=== PATIENT | female | born 1955 | race Caucasian/White ===

== ENCOUNTER 2016-10-17 13:16 | Observation (INO) ==
[2016-10-17] MEDS: SALINE FLUSH 10ml SYRINGE IVF PRN ×2 (13:34→16:05)
--- OUTSIDE RECORDS SUMMARY | 2016-10-17 13:54 | External Medical Summary | Referral Summary ---
:1955 Author Organization [facility] [place] [id number] Care Team Providers Name Role Phone Kasia Naqvi Primary Care Physician Encounter VC Date(s): 04/30/15 - 04/30/15 [facility] [place] [phone] [phone] Discharge Disposition: 01-Home or Self Care Attending Physician: Jerzy Wade APRN Admitting Physician: Jerzy Wade APRN Vital Signs Most recent to oldest [Reference Range]: 1 Temperature Tympanic [36.6-38.1 degC] 36.3 degC *LOW* (04/30/15 10:46 AM) Peripheral Pulse Rate [60-100 bpm] 73 bpm (04/30/15 10:46 AM) Respiratory Rate [14-20 br/min] 18 br/min (04/30/15 10:46 AM) Blood Pressure [90-140/60-90 mmHg] 144/92 mmHg *HI* (04/30/15 10:46 AM) SpO2 98 % (04/30/15 10:46 AM) Problem List Condition Effective Dates Status Health Status Informant CAD (coronary artery Active disease)(Confirmed) Crohn's disease(Confirmed) Active GERD (gastroesophageal reflux Active disease)(Confirmed) History of TIA (transient ischemic Active attack)(Confirmed) Seasonal allergies(Confirmed) Active Allergies, Adverse Reactions, Alerts Substance Reaction Severity Status acetaminophen-HYDROcodone Anaphylaxis Medium Active hyoscyamine Adverse Reaction Medium Active novobiocin Adverse Reaction Medium Active oxyCODONE Adverse Reaction Medium Active penicillin Active prednisoLONE Adverse Reaction Medium Active Medications Asacol HD 800 mg oral delayed release tablet mg tabs, Oral, TID, 0 Refill(s) Start Date: 01/21/15 Status: Orderedaspirin 81 mg oral tablet 81 mg 1 tabs, Oral, Daily, # 30 tabs, 0 Refill(s) Start Date: 01/21/15 Status: OrderedRABEprazole 20 mg oral delayed release tablet 20 mg 1 tabs, Oral, Daily, 0 Refill(s) Start Date: 01/21/15 Status: Ordered Results No data available for this section Immunizations No data available for this section Procedures Procedure Date Related Diagnosis Body Site heart cath 12/10/14 artificial knee, right 02/21/11 colonoscopy 02/21/09 Appendectomy; 02/21/95 hysterectomy for endometriosis 10/23/91 tonsilectomy 1960 Social History Social History Type Response Smoking Status Former smoker Assessment and Plan No data available for this section
[2016-10-17] MEDS ORDERED: IOHEXOL 350mg/ml 50ml INJECTION ONE (14:17)
[2016-10-17] MEDS ORDERED: SALINE FLUSH 10ml SYRINGE ONE ×2 (14:17→14:44)
[2016-10-17] MEDS ORDERED: IOHEXOL 350mg/ml 75ml INJECTION ONE (14:17)
[2016-10-17] MEDS ORDERED: NS 100 ML ONE (14:17)
[2016-10-17] MEDS ORDERED: NS 1,000 ML IV ONE (14:29)
--- NOTE | 2016-10-17 14:46 | CT Scan Report ---
Indication: Pain with right-sided weakness and lightheadedness PROCEDURE: CT head/brain wo con: Encounter: Initial Comparison: None Technique: Axial CT images through the head were performed without contrast. Iterative Reconstruction dose reducing technique was utilized. FINDINGS: The ventricles are of normal size, shape, and contour for the patient's age. The brainstem, cerebellum, and cerebral hemispheres have a normal morphology and CT attenuation. There is no evidence of midline displacement. No hemorrhage, signs of acute territorial stroke, mass effect, mass lesions, or edema is evident. The visualized portions of the skull base, midface, and calvarium demonstrate no abnormality. The paranasal sinuses are well aerated and free of significant disease. The tympanic and mastoid cavities appear normal. IMPRESSION: No acute intracranial abnormality or hemorrhage. There is a preliminary report by [facility]. .
--- NOTE | 2016-10-17 14:55 | XRay Report ---
Indication: Chest pain with left arm pain radiating to the back for one day PROCEDURE: XR chest 1V: Encounter: Initial Comparison: September 15, 2016 FINDINGS: The lungs are clear. There is no abnormal airspace opacity, pleural effusion or pneumothorax identified. The heart size, pulmonary vasculature and mediastinum are within normal limits. No significant skeletal abnormality is seen. IMPRESSION: No acute cardiopulmonary abnormality. .
[2016-10-17] MEDS ORDERED: HYDROMORPHONE 2 MG/ML INJECTION IVP ONE (15:54)
[2016-10-17] MEDS ORDERED: ASPIRIN 81 MG CHEWABLE TABLET PO ONE (15:54)
--- NOTE | 2016-10-17 16:08 | Emergency Department Report ---
General Adult HPI - General Chief complaint: Chest Pain Stated complaint: Pos stroke Time Seen by Provider: 10/17/16 13:32 Source: patient Mode of arrival: ambulatory Limitations: no limitations - History of Present Illness HPI narrative: 61-year-old female presents to the emergency department with the chief complaints of chest pain radiating into her back and weakness in her right upper and lower extremities. Patient states that she was at home one day ago at approximately 10 AM when her symptoms began. Patient states that her symptoms have been gradually progressive in nature since onset. Patient states that she did take sublingual nitroglycerin prior to arrival to the emergency department and that gave her a headache but did alleviate her chest pain. Patient denies any other complaints or associated symptoms. She was at home when her symptoms began. Symptoms have been persistent in nature since onset. She states that she does have a history of myocardial infarction in the past as well as TIA. Patient describes the pain in her chest as moderate. It is a sharp. It radiates to her back. - Related Data Home Medications Medication Instructions Recorded Confirmed Nitroglycerin [Nitrostat] 0.4 mg PO Q5MIN PRN #0 12/26/14 10/17/16 Albuterol Sulfate [Proair Hfa] 1 puff INH Q4H PRN 10/17/16 10/17/16 Aspirin 81 mg PO DAILY PRN 10/17/16 10/17/16 Atorvastatin [Lipitor] 10 mg PO HS 10/17/16 10/17/16 Benzonatate [Benzonatate] 100 mg PO Q8H PRN 10/17/16 10/17/16 Budesonide [Uceris] 9 mg PO DAILY 10/17/16 10/17/16 Ibuprofen 200 mg PO Q4H PRN 10/17/16 10/17/16 Mesalamine [Mesalamine] 800 mg PO TID 10/17/16 10/17/16 Omeprazole [Prilosec] 20 mg PO DAILY 10/17/16 10/17/16 Allergies Allergy/AdvReac Type Severity Reaction Status Date / Time diazepam Allergy Severe HIVES Verified 10/17/16 13:28 guaifenesin Allergy Severe HIVES Verified 10/17/16 13:28 hydrocodone Allergy Severe Hives Verified 10/17/16 13:43 nortriptyline Allergy Severe HIVES Verified 10/17/16 13:28 oxycodone Allergy Severe HIVES Verified 10/17/16 13:28 Penicillins Allergy Severe HIVES Verified 10/17/16 13:28 prednisone Allergy Severe "GO Verified 10/17/16 13:28 CRAZY", HIVES topiramate [From Topamax] Allergy Severe Hives Verified 10/17/16 13:28 tramadol Allergy Severe Hives Verified 10/17/16 13:43 Review of Systems Constitutional: Denies: fever, chills Eyes: Denies: eye pain, vision change ENT: Denies: ear pain, throat pain Cardiovascular: Reports: chest pain. Denies: palpitations Respiratory: Denies: cough, dyspnea Gastrointestinal: Denies: abdominal pain, nausea, vomiting, diarrhea Genitourinary: Denies: urgency, dysuria Musculoskeletal: Denies: back pain, arthralgia Integumentary: Denies: erythema, rash Neurological: Reports: headache, weakness. Denies: numbness, paresthesias Psychiatric: Denies: anxiety, depression Endocrine: Denies: fatigue, heat or cold intolerance Hematological/Lymphatic: Denies: easy bleeding, easy bruising Allergic/Immunologic: Denies: facial swelling, urticaria PFSH Patient Stated Medical History Transient Ischemic Attacks ( Yes TIA) Angina Yes Coronary Artery Disease Yes Hypertension Yes Myocardial Infarction Yes: two Bronchitis Yes Pneumonia Yes: 12 years ago Gastroesophageal Reflux Yes Disease Gastrointestinal Bleeding Yes: in the past Hiatal Hernia Yes Other GI Yes: chrons Osteoarthritis Yes Post Menopausal Yes Clinic Medical History (Last Reviewed 10/11/16 @ 08:39 by BRANT Boo) Angina at rest (Acute Medical) Bronchitis (Acute Medical) Coronary artery disease (Acute Medical) GERD (gastroesophageal reflux disease) (Acute Medical) No abnormality detected by assessment of physical health (Acute Medical) Osteoarthritis (Acute Medical) Surgical History: Hyst 1991, right knee total /replacement 2011, right shoulder 2003, colonoscopy Family History: Family History (Last Reviewed 10/11/16 @ 08:39 by BRANT Boo) Paternal Grandfather Cancer, colon Maternal Aunt Skin cancer (melanoma) COPD (chronic obstructive pulmonary disease) Father Heart attack High blood pressure Mother High blood pressure COPD (chronic obstructive pulmonary disease) Brother High blood pressure Sister High blood pressure - Social History Smoking status: Former smoker Substance use type: does not use Alcohol intake frequency: does not drink Physical Exam - Limitations Limitations: no limitations - General General appearance: alert, in no apparent distress - Normal Exams: Head:: Normocephalic without trauma Eyes:: Pupils are PERRLA w/ EOMI, No scleral icterus, irritation, or foreign bodies noted ENMT:: No facial trauma, nasal exudates, pharyngeal erythema, or exudates are noted Dental: No fractured, loose, or missing teeth noted Neck:: Full range of motion, without adenopathy, JVD, bruits or thyromegaly Chest/Respirations:: Clear all ball, with good airflow, and symmetry bilaterally Cardiovascular:: Regular rate and rhythm, without murmur or gallop, Pulses 2+ all extremities, capillary refill, <2 seconds all extremities Abdomen:: Bowel sounds positive, soft, non-tender, non-distended, no hepatosplenomegaly, masses or bruits noted Lymphatic:: No lymphadenopathy, or lymphedema noted Musculoskeletal:: No tenderness, or deformity noted, good range of motion, all extremities Integumentary:: No rashes, hives, or bruising noted, hair and nails, without abnormality Neurological:: Patient is alert, and oriented, cranial nerves (Alert and oriented x 4. CN 2-12 intact. Normal sensation. Normal motor. Normal gait. Normal speech. Normal coordination. Reflexes 2/4 in all extremities. Absent Babinski bilaterally. 4+/5 strength in right upper/lower extremity. All other extremities are unremarkable.) Psychiatric:: Patient exhibits, appropriate attention, emotion and affect Course Vital Signs Temperature 98.0 F 10/17/16 13:28 Pulse Rate 75 10/17/16 13:28 Respiratory Rate 19 10/17/16 13:28 Blood Pressure 167/77 H 10/17/16 13:28 Pulse Oximetry 98 10/17/16 13:28 Temperature 97.1 F 10/18/16 08:00 Pulse Rate 64 10/18/16 08:00 Respiratory Rate 16 10/18/16 08:00 Blood Pressure 128/76 10/18/16 08:00 Pulse Oximetry 96 10/18/16 08:00 Medical Decision Making - [facility] Narrative Medical decision making narrative: Labs/imaging were discussed in detail with the patient and family and questions are answered. Patient is given 324 mg of aspirin by mouth times one. Patient is given IV hydration. Patient is given parental narcotic and antiemetic medications venously with improvement of symptoms. The patient's symptoms began 1 day ago and she is outside of the window for TPA therapy. Due to the patient's symptoms a stroke alert was called when she arrived at the emergency department. Tele-neurologic consultation with Dr. Ellis was obtained and he agrees that the patient is not a TPA candidate. The recommendation of tele- neurology is for the patient to be admitted for further evaluation and treatment and stroke workup with conservative therapy. Patient did undergo a CT angiogram aorta in the emergency department because of her complaints of right-sided weakness and severe chest and back pain. This was negative. Patient's CT scan of her head was negative. Patient is admitted to the service of Dr. Barron Aparicio after discussion with him. Dr. Aparicio is in agreement with the current plan of management. Patient is admitted to the hospital in improved condition. It should be noted that while the patient does have complaints of right sided deficit in the arm and leg her effort on her physical examination is suspect. Patient is not a TPA candidate due to her symptoms onset outside of the window for treatment one day ago. Patient does have a long-standing psychiatric history and there is some concern this could be playing a role in the presentation of her symptoms. However per the patient she does have a history of myocardial infarction and TIA so tele-neurology consultation was obtained and the patient will be admitted for further evaluation and treatment. Tele- neurologic recommendation is no TPA administration as patient is outside of the window. Recommendation is to admit the patient for stroke workup. Tele- neurology recommends withholding aspirin until a negative CT angiogram of the aorta is obtained to rule out aortic dissection as a cause of symptoms. 47 minutes of critical care time was assessed to the patient as TPA was considered but ultimately the patient was not a candidate for TPA therapy. Patient required repeated assessment at the bedside, complex medical decision- making, and had potential for decompensation. Patient is admitted to the hospital for further evaluation and treatment. Critical care time was spent treating the patient, documenting the medical record, discussing with family, and making telephone calls on the patient's behalf. - Differential Diagnosis CVA, Aortic Dissection, Anxiety, ACS, WA - Lab Data Result diagrams: 10/18/16 03:58 10/18/16 03:58 Lab Results 08/27/17 08/27/17 08/27/17 Range/Units 13:33 13:33 13:33 WBC 9.2 (4.5-11.0) T/MM3 RBC 4.77 (4.00-5.20) M/MM3 Hgb 14.3 (12-16) GM/DL Hct 43.3 (36-46) % MCV 90.8 (80-100) UM3 MCH 30.0 (26-34) UUG MCHC 33.0 (31-37) GM/DL RDW Std Deviation 46.2 (36.9-50.2) FL Plt Count 211 (130-400) T/MM3 MPV 9.0 L (9.4-12.4) UM3 Immature Gran % (Auto) 0.3 (0.0-0.5) % Neut % (Auto) 63.1 (33-66) % Lymph % (Auto) 23.2 (23-45) % [place] % (Auto) 11.1 H (0-9.0) % Eos % (Auto) 1.6 (0-4) % Baso % (Auto) 0.7 (0-2) % Neut # 5.8 (1.8-7.7) T/MM3 Lymph # 2.1 (1-4.8) T/MM3 [place] # 1.0 H (0-0.8) T/MM3 Eos # 0.2 (0-0.5) T/MM3 Baso # 0.1 (0-0.2) T/MM3 Abs Immat Gran (auto) 0.03 (0.00-0.03) T/MM3 INR 1.03 (0.99-1.21) APTT 26.4 (24-36) SEC Turbidity < 20 (0-20) Sodium 145 H (134-144) MEQ/L Potassium 3.5 L (3.6-5) MEQ/L Chloride 110 H (98-107) MEQ/L Carbon Dioxide 24 (22-30) MEQ/L Anion Gap 11 (5-15) MEQ/L BUN 16.0 (7-17) MG/DL Creatinine 0.8 (0.7-1.2) MG/DL GFR Calculation 73 BUN/Creatinine Ratio 20 (6-26) RATIO Glucose 94 (65-110) MG/DL Calculated Osmolality 280 (261-280) MOSM/KG Calcium 9.2 (8.4-10.2) MG/DL Total Bilirubin 0.50 (0.20-1.30) MG/DL Icterus Index < 2 (0-7) AST 30 (14-36) U/L ALT 41 (9-52) U/L Alkaline Phosphatase 90 (38-126) U/L Troponin I < 0.012 (0-0.12) ng/ml Total Protein 7.4 (6.3-8.2) G/DL Albumin 4.4 (3.5-5.0) G/DL Globulin 3.0 (2.4-3.6) G/DL Albumin/Globulin Ratio 1.5 (1.1-2.2) RATIO Lipase (23-300) U/L Specimen Hemolysis < 15 (0-25) Ur Collection Type Urine Color (YELLOW) Urine Clarity Urine pH (5.0-8.0) Ur Specific Kite (1.015-1.025) Urine Protein (NEGATIVE) Urine Glucose (UA) (NEGATIVE) Urine Ketones (NEGATIVE) Urine Occult Blood (NEGATIVE) Urine Nitrate (NEGATIVE) Urine Bilirubin (NEGATIVE) Urine Urobilinogen (NORMAL) EU/DL Ur Leukocyte Esterase (NEGATIVE) Urinalysis Comment 10/17/16 10/17/16 Range/Units 13:33 15:07 WBC (4.5-11.0) T/MM3 RBC (4.00-5.20) M/MM3 Hgb (12-16) GM/DL Hct (36-46) % MCV (80-100) UM3 MCH (26-34) UUG MCHC (31-37) GM/DL RDW Std Deviation (36.9-50.2) FL Plt Count (130-400) T/MM3 MPV (9.4-12.4) UM3 Immature Gran % (Auto) (0.0-0.5) % Neut % (Auto) (33-66) % Lymph % (Auto) (23-45) % [place] % (Auto) (0-9.0) % Eos % (Auto) (0-4) % Baso % (Auto) (0-2) % Neut # (1.8-7.7) T/MM3 Lymph # (1-4.8) T/MM3 [place] # (0-0.8) T/MM3 Eos # (0-0.5) T/MM3 Baso # (0-0.2) T/MM3 Abs Immat Gran (auto) (0.00-0.03) T/MM3 INR (0.99-1.21) APTT (24-36) SEC Turbidity (0-20) Sodium (134-144) MEQ/L Potassium (3.6-5) MEQ/L Chloride (98-107) MEQ/L Carbon Dioxide (22-30) MEQ/L Anion Gap (5-15) MEQ/L BUN (7-17) MG/DL Creatinine (0.7-1.2) MG/DL GFR Calculation BUN/Creatinine Ratio (6-26) RATIO Glucose (65-110) MG/DL Calculated Osmolality (261-280) MOSM/KG Calcium (8.4-10.2) MG/DL Total Bilirubin (0.20-1.30) MG/DL Icterus Index (0-7) AST (14-36) U/L ALT (9-52) U/L Alkaline Phosphatase (38-126) U/L Troponin I (0-0.12) ng/ml Total Protein (6.3-8.2) G/DL Albumin (3.5-5.0) G/DL Globulin (2.4-3.6) G/DL Albumin/Globulin Ratio (1.1-2.2) RATIO Lipase 98 (23-300) U/L Specimen Hemolysis (0-25) Ur Collection Type Urine, clean catch Urine Color Yellow (YELLOW) Urine Clarity Clear Urine pH 6.5 (5.0-8.0) Ur Specific Kite <=1.005 L (1.015-1.025) Urine Protein Negative (NEGATIVE) Urine Glucose (UA) Negative (NEGATIVE) Urine Ketones Negative (NEGATIVE) Urine Occult Blood Trace-intact (NEGATIVE) Urine Nitrate Negative (NEGATIVE) Urine Bilirubin Negative (NEGATIVE) Urine Urobilinogen 0.2 (NORMAL) EU/DL Ur Leukocyte Esterase Negative (NEGATIVE) Urinalysis Comment Microscopic not ind. - Radiology Data CT HEAD - Negative. CTA Aorta: Negative. CXR - Negative. - EKG Data EKG #1 EKG results narrative: Sinus rhythm. 86 bpm. No STEMI. Critical Care Time Critical Care Time: Yes Total Critical Care Time: 47 Attestation: 47 minutes of critical care time was assessed to the patient as TPA was considered. Patient required repeated assessment at the bedside, complex medical decision-making, and had potential for decompensation. Patient is admitted to the hospital for further evaluation and treatment. Critical care time was spent treating the patient, documenting the medical record, discussing with family, and making telephone calls on the patient's behalf. Disposition Clinical Impression: Chest pain Disposition: 02 To [facility] Acute Care Condition: Stable Time of Disposition: 16:00 (Dr. Sarah. ) - Seen By: physician
[2016-10-17] MEDS ORDERED: ONDANSETRON 4 MG/2 ML INJECTION IVP PRN (17:26)
--- NOTE | 2016-10-17 17:31 | History & Physical Report ---
<Yvette Tapia - Last Filed: 10/17/16 17:56> History of Present Illness Date: 10/17/16 Chief complaint: abdominal pain and stroke-like symptoms HPI: Jayda is a 61-year-old female patient of Seema Pereira APRN. She presented to the emergency room today with complaints of at the gastric/right upper quadrant/ right back pain. States she's had for a week but yesterday it got worse. It is typically worse after eating or even after drinking water. She states yesterday around 10 am she had chest pain and felt that the right side of her face fell asleep. She had chills that lasted all day. She fell several times throughout the day yesterday. She's had a "killer headache" since yesterday. It is better now since she had the Dilaudid in the ER. She states at 11 AM she took her baby aspirin and nitroglycerin 2. The chest pain eased with this. Following the nitroglycerin, she had double vision and states her vision would "blackout." She states at 12:30 she took some ibuprofen for the headache. At 1:00 she was trying to get out of her chair to go to the bathroom and she fell to the ground. Says her right arm and leg "wouldn't work." Her helped her to the bathroom and she was able to walk after using the bathroom, but she states her right leg was "dragging." She was started on budesonide (Uceris) on 10/14/[address] Arthur for her abdominal pain. He wanted her to try this to see if that would help with her pain, with the idea that if her pain improved, it would confirm her symptoms are from her Crohn's. She had recently seen her PCP who has her scheduled for a CT scan of her abdomen and pelvis and labs including CBC, CMP and lipase to rule out gallbladder disease. Patient reports she had a HIDA scan in March 2015. It was negative other than it showed a dilated common bile duct. She feels strongly her pain is coming from her gallbladder. She does not eat fried or fatty foods. States the pain is typically brought on after eating or drinking. She states she has a history of several TIAs. She has had endarterectomy on the left and reports her right carotid is 50% stenosed. She sees Dr. Cheri Acevedo. States her last heart cath was March 2016. No history of stents or CABG. In August she had an episode of arm and leg numbness lasted for at least an hour. She gets these symptoms periodically and states they have just progressed in severity and length of time they last. She also notes she had her first Reclast infusion on 10/15/16. She started atorvastatin 10 mg for hyperlipidemia on 10/11/16. Review of Systems Comprehensive ROS: completed and no additional positive findings except those as stated Review of systems: States overall she feels fine at this point with exception of a dull ache at the base of her neck which she states is "always there." Her last bowel movement was this morning. - Constitutional Constitutional: Present: headache(s) - EENMT Eyes: Present: other (double vision following home nitroglycerin) [facility] Medical History Crohn's disease Angina Coronary artery disease GERD Osteoarthritis History of TIAs Carotid atherosclerosis Surgical History: Hyst 1991, right knee total /replacement 2011, right shoulder 2003, appendectomy. Ganglion cyst removal from right foot. Tonsillectomy. 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 Arthur Medications Home Medications Medication Instructions Recorded Confirmed Type Nitroglycerin [Nitrostat] 0.4 mg PO Q5MIN PRN #0 12/26/14 10/17/16 History Albuterol Sulfate [Proair Hfa] 1 puff INH Q4H PRN 10/17/16 10/17/16 History Aspirin 81 mg PO DAILY PRN 10/17/16 10/17/16 History Atorvastatin [Lipitor] 10 mg PO HS 10/17/16 10/17/16 History Benzonatate [Benzonatate] 100 mg PO Q8H PRN 10/17/16 10/17/16 History Budesonide [Uceris] 9 mg PO DAILY 10/17/16 10/17/16 History Ibuprofen 200 mg PO Q4H PRN 10/17/16 10/17/16 History Mesalamine [Mesalamine] 800 mg PO TID 10/17/16 10/17/16 History Omeprazole [Prilosec] 20 mg PO BID 10/17/16 10/17/16 History Allergies Allergy/AdvReac Type Severity Reaction Status Date / Time diazepam Allergy Severe HIVES Verified 10/17/16 13:28 guaifenesin Allergy Severe HIVES Verified 10/17/16 13:28 hydrocodone Allergy Severe Hives Verified 10/17/16 13:43 nortriptyline Allergy Severe HIVES Verified 10/17/16 13:28 oxycodone Allergy Severe HIVES Verified 10/17/16 13:28 Penicillins Allergy Severe HIVES Verified 10/17/16 13:28 prednisone Allergy Severe "GO Verified 10/17/16 13:28 CRAZY", HIVES topiramate [From Topamax] Allergy Severe Hives Verified 10/17/16 13:28 tramadol Allergy Severe Hives Verified 10/17/16 13:43 Exam Vital Signs: Temperature 98.0 F 10/17/16 13:28 Pulse Rate 67 10/17/16 16:00 Respiratory Rate 23 10/17/16 16:00 Blood Pressure 135/71 10/17/16 16:00 Pulse Oximetry 98 10/17/16 16:00 - Constitutional Present: no acute distress, well nourished, well developed - Routine HEENT Exam Head: Present: normocephalic, atraumatic Eye: Present: EOMI, PERRL, normal accommodation. Absent: conjunctival icterus, scleral injection ENT: Present: mucous membranes moist, oropharynx clear, dentition normal - Routine Neck Exam Present: supple, full ROM. Absent: carotid bruit - Routine Chest/Breast/Axilla Exam Chest wall: Present: tenderness (mild -with palpation) - Routine Respiratory Exam Present: CTA bilaterally. Absent: accessory muscle use, dyspnea, wheezes - Routine Cardiovascular Exam Present: RRR, S1, S2. Absent: murmur - Routine Abdominal Exam Present: soft, normoactive bowel sounds, tenderness (mild to moderate tenderness epigastric/right upper quadrant), non distended. Absent: guarding, firm, rigid, organomegaly, mass - Routine Extremities Exam Present: no edema, normal capillary refill - Routine Back/Spine/Pelvis Exam Back/Spine: Present: full ROM. Absent: CVA tenderness - Routine Skin Exam Present: dry, warm. Absent: wounds, rash - Routine Neurological Exam Present: alert, oriented X3, moving all extremities, vision grossly intact, hearing grossly intact, normal speech. Absent: sensory deficit, pronator drift , altered mental status, nystagmus, fasciculations, facial asymmetry, tremors Cranial nerves III through XII intact On strength testing both the right leg and right arm are weaker compared to the left, however, when having her push up against resistance, her right arm was stronger and her left arm seemed weaker (this was tested after I had her push down against resistance and her right arm was weaker). She got somewhat flustered, and then said "oh, you said push up," and then she had more strength in the left arm compared to the right. On healthcare architect strength testing right was weaker than the left. Wnuhce-by-qyknlj and finger-nose testing are normal. - Routine Psychiatric Exam Present: normal affect, normal thought process, cooperative Results - Labs CBC & Chem 7: 10/17/16 13:33 10/17/16 13:33 Labs: Laboratory Tests 09/15/16 10:07 Triglycerides 94 Cholesterol 218 H LDL Cholesterol 143 H VLDL Cholesterol 19 Non-HDL Cholesterol 162 H HDL Cholesterol 56 Cholesterol/HDL Ratio 3.9 TSH 2.36 - Imaging and Cardiology Chest x-ray Additional comments: FINDINGS: The lungs are clear. There is no abnormal airspace opacity, pleural effusion or pneumothorax identified. The heart size, pulmonary vasculature and mediastinum are within normal limits. No significant skeletal abnormality is seen. IMPRESSION: No acute cardiopulmonary abnormality. CT scan - head Additional comments: Head CT FINDINGS: The ventricles are of normal size, shape, and contour for the patient's age. The brainstem, cerebellum, and cerebral hemispheres have a normal morphology and CT attenuation. There is no evidence of midline displacement. No hemorrhage, signs of acute territorial stroke, mass effect, mass lesions, or edema is evident. The visualized portions of the skull base, midface, and calvarium demonstrate no abnormality. The paranasal sinuses are well aerated and free of significant disease. The tympanic and mastoid cavities appear normal. IMPRESSION: No acute intracranial abnormality or hemorrhage. Aorta CTA was negative. Assessment and Plan DVT Prophylaxis: SCD's GI Prophylaxis: other (omeprazole - home med) Resuscitation Status: Do Not Resuscitate Assessment and Plan: Impression Epigastric/right upper quadrant/right back pain Chest pain Transient Right-sided facial numbness Transient and recurrent right sided weakness Coronary artery disease with angina Carotid atherosclerosis GERD COPD Osteoarthritis Hyperlipidemia Osteoporosis Mild Hypernatremia-on admission Mild Hypokalemia-on admission Tobacco use Plan Admit patient to hospitalist team (Dr. Aparicio attending) under observation status for further workup, monitoring vital signs/labs. Workup to include echocardiogram, carotid sonogram, CT abdomen pelvis, MRI brain. Telemetry ordered given her history of coronary artery disease/angina. Vital signs every 8 hours. Cardiac diet Half-normal saline with KCl to run at 75 mL per hour given her hyponatremia and hypokalemia SCDs for DVT prevention. Hold Lovenox until MRI brain is completed. CBC and BMP in the morning along with lipase and lipids and urinalysis for laboratory completeness. PT/OT for functional assessment. ST for swallowing assessment. RT consult for smoking cessation. Nebulizer treatments when necessary Continue Lipitor for hyperlipidemia Continue omeprazole for GERD Continue budesonide, mesalamine for Crohn's. Discussed code status. Pt requests DO NOT RESUSCITATE. Order is written. On discharge, care will be returned to PCP, Seema Pereira APRN. - Time spent with patient greater than 35 minutes Sepsis Assessment - Evaluation Sepsis screening result: No Definite Risk Hospital Course Summary Disclaimer: The visit summary below is not to be considered part of the above Progress Note. Hospital Course: 10/17/16 - Hospital admission to observation Impression Epigastric/right upper quadrant/right back pain Chest pain Transient Right-sided facial numbness Transient and recurrent right sided weakness Coronary artery disease with angina Carotid atherosclerosis GERD COPD Osteoarthritis Hyperlipidemia Osteoporosis Mild Hypernatremia-on admission Mild Hypokalemia-on admission Tobacco use Plan Admit patient to hospitalist team (Dr. Aparicio attending) under observation status for further workup, monitoring vital signs/labs. Workup to include echocardiogram, carotid sonogram, CT abdomen pelvis, MRI brain. Telemetry ordered given her history of coronary artery disease/angina. Vital signs every 8 hours. Cardiac diet Half-normal saline with KCl to run at 75 mL per hour given her hyponatremia and hypokalemia SCDs for DVT prevention. Hold Lovenox until MRI brain is completed. CBC and BMP in the morning along with lipase and lipids and urinalysis for laboratory completeness. PT/OT for functional assessment. ST for swallowing assessment. RT consult for smoking cessation. Nebulizer treatments when necessary Continue Lipitor for hyperlipidemia Continue omeprazole for GERD Continue budesonide, mesalamine for Crohn's. Discussed code status. Pt requests DO NOT RESUSCITATE. Order is written. On discharge, care will be returned to PCP, Seema Pereira APRN. <Barron Aparicio - Last Filed: 10/17/16 19:06> History of Present Illness Date: 10/17/16 [facility] Patient Stated Medical History Transient Ischemic Attacks ( Yes TIA) Angina Yes Coronary Artery Disease Yes Hypertension Yes Myocardial Infarction Yes: two Bronchitis Yes Pneumonia Yes: 12 years ago Gastroesophageal Reflux Yes Disease Gastrointestinal Bleeding Yes: in the past Hiatal Hernia Yes Other GI Yes: chrons Osteoarthritis Yes Post Menopausal Yes Clinic Medical History (Last Reviewed 10/11/16 @ 08:39 by BRANT Boo) Angina at rest (Acute Medical) Bronchitis (Acute Medical) Coronary artery disease (Acute Medical) GERD (gastroesophageal reflux disease) (Acute Medical) No abnormality detected by assessment of physical health (Acute Medical) Osteoarthritis (Acute Medical) Family History: Family History (Last Reviewed 10/11/16 @ 08:39 by BRANT Boo) Paternal Grandfather Cancer, colon Maternal Aunt Skin cancer (melanoma) COPD (chronic obstructive pulmonary disease) Father Heart attack High blood pressure Mother High blood pressure COPD (chronic obstructive pulmonary disease) Brother High blood pressure Sister High blood pressure Exam Vital Signs: Temperature 97.3 F 10/17/16 18:35 Pulse Rate 62 10/17/16 17:46 Respiratory Rate 16 10/17/16 17:27 Blood Pressure 149/71 H 10/17/16 17:27 Pulse Oximetry 100 10/17/16 17:30 Oxygen Delivery Method Room Air Height/Weight/BMI: Height 1.7 m Weight 74 kg Body Mass Index 25.5 Results - Labs CBC & Chem 7: 10/17/16 13:33 10/17/16 13:33 Assessment and Plan Assessment and Plan: Impression Epigastric/right upper quadrant/right back pain Chest pain Transient Right-sided facial numbness Transient and recurrent right sided weakness Coronary artery disease with angina Carotid atherosclerosis GERD COPD Osteoarthritis Hyperlipidemia Osteoporosis Mild Hypernatremia-on admission Mild Hypokalemia-on admission Tobacco use Have independently interviewed and examined pt. Chart reviewed. Case discussed with ED physician and my PA. Care plan developed with my supervision; agree with above. Not been doing well past several days. Increasing ab pain and discomfort, RUQ, worse with eating. Slight nausea but no emesis. No stool for 3 day, but did past stool yesterday. No diarrhea. Has been feeling much more weak and unsteady. Right side of body weak yesterday-could walk for move for several minutes. Did not go to ED as watching her grandchild. Notes PARRISH. Has intermittent numbness to right face. Feeling chilled and running low grade temp. Breathing stable. Pt does report under stressors at home. Lungs: clear CV: regular AB: soft, ND +BS. No rebound or guarding. GEN: looks very tired and fatigued Plan: OBS. With neurological symptoms will check MRI to exclude occult brain pathology (MS)-check Doppler neck and ECHO as with vascular disease at risk for stroke. Pt scheduled for CT ab/pelvis with oral/IV contrast by her GI specialist -will proceed. Also check US GB. PT/OT to assess functional status. IVF of 1/ 2NS with 20KCl as sodium slightly high and potassium slightly low - recheck lab in am. RT for tobacco cessation. Continue home medications. SCD for DVT prevention. Hospital Course Summary Disclaimer: The visit summary below is not to be considered part of the above Progress Note.
[2016-10-17] MEDS ORDERED: BENZONATATE 100 MG CAPSULE PO PRN (17:33)
[2016-10-17] MEDS ORDERED: NITROGLYCERIN 0.4 MG SUBLINGUAL TABLET SL PRN (17:33)
[2016-10-17] MEDS ORDERED: ASPIRIN 81 MG CHEWABLE TABLET PO PRN (17:33)
[2016-10-17] MEDS ORDERED: IBUPROFEN 200 MG TABLET PO PRN (17:33)
[2016-10-17 17:34] VITALS: BMI 25.5
[2016-10-17] MEDS ORDERED: ALBUTEROL/IPRATROPIUM 2.5mg-0.5mg/3ml NEB AEROSOL PRN (17:34)
[2016-10-17] MEDS: 1/2 NS with KCL 20mEq 1,000 ML IV SCH (17:52)
[2016-10-17] MEDS ORDERED: OMEPRAZOLE 20 MG CAPSULE PO SCH (21:00)
[2016-10-17] MEDS ORDERED: ATORVASTATIN 10 MG TABLET PO SCH (21:00)
[2016-10-17] MEDS: MESALAMINE 800 MG TABLET PO SCH (21:21)
[2016-10-18] MEDS: 1/2 NS with KCL 20mEq 1,000 ML IV SCH (06:49)
[2016-10-18] MEDS: OMEPRAZOLE 20 MG CAPSULE PO SCH ×2 (07:37→10:09)
--- NOTE | 2016-10-18 07:56 | CT Scan Report ---
EXAM: CT angio aorta HISTORY: Pain COMPARISON: Prior chest x-ray dated 10/17/[address] angio of the thoracic and abdominal aorta was performed with 120 cc of Omnipaque 350 intravenous contrast administration. Continuous thin section imaging was obtained through the thorax. Sagittal and coronal reconstruction images were performed. 3-D volume surface rendering imaging was performed. The current CT scan was performed using radiation dose-reduction techniques. FINDINGS: There is good opacification of the thoracic and abdominal aorta which appears of normal caliber throughout its course. The thoracic aorta demonstrates the following dimensions: The ascending segment of the thoracic aorta measures 2.8 cm maximum dimension, the aortic arch measures 2.3 cm maximum dimension and the descending thoracic aorta measures 2.7 cm maximum dimension. There is mild scattered plaque formation in the ascending segment of the thoracic aorta but there is otherwise no significant plaque formation in the thoracic aorta. The thoracic aorta shows no evidence of intimal flap or dissection. The abdominal aorta demonstrates the following dimensions: The proximal/suprarenal segment of the abdominal aorta demonstrates maximum dimension of 2.1 cm, the infrarenal mid segment of the abdominal aorta demonstrates maximum dimension of 1.8 cm and the distal abdominal aorta just proximal to the bifurcation measures 1.7 cm. There is mild scattered plaque formation in the abdominal aorta. The abdominal aorta shows no evidence of intimal flap or dissection. The common iliac arteries are normal caliber bilaterally with the right common iliac artery measuring 8.4 mm the left common iliac artery measuring 7.9 mm. There is mild plaque formation in the common iliac arteries. Lung ball are mildly hyperinflated showing mild emphysematous changes. No acute focal infiltrates are identified there is a 5 mm noncalcified nodule in the left lower lobe (axial image 62) there is linear parenchymal scarring at the lung bases. There is no mediastinal, hilar or axillary adenopathy. The heart appears normal in size and the pulmonary arteries are well opacified without filling defect. There are a few tiny hypodense nodular foci in both thyroid lobes. The liver, spleen, kidneys and pancreas are unremarkable. The gallbladder is contracted. The stomach is decompressed appearing unremarkable. The bowel loops are normal caliber, there is no evidence of mechanical bowel obstruction. There is no acute inflammatory bowel process. There are diverticular changes along the course of the colon without evidence of diverticulitis. There is prominent retained fecal material within the colon. No free fluid or air is seen in the abdomen or visualized portions of the pelvis. The floor of the pelvis was not included on the image therefore the presence or absence of the uterine anatomy cannot be evaluated. Visualized portion of the urinary bladder shows no filling defects or wall thickening Osseous structures show no fractures or focal destructive lesions. Early degenerative changes are noted in the thoracic and lumbar spine and bony pelvis. IMPRESSION: 1. No evidence of aneurysmal dilatation intimal flap or dissection of the thoracic or abdominal aorta. Mild plaque formation is seen in the thoracic and abdominal aorta and iliac arteries. 2. There is a 5 mm noncalcified nodule in the left lower lobe that is indeterminate and warrants short interval six-month CT chest follow-up. 3. Mild chronic emphysematous lung changes. 4. Diverticulosis coli without evidence of diverticulitis. 5. Gallbladder is contracted which may be due to recent meal, correlate clinically as chronic gallbladder disease can also give this appearance. 6. Constipation. 7. There are a few tiny of hypodense nodularity seen in both thyroid lobes. Sonographic assessment on a nonemergent basis may be helpful. .
[2016-10-18 08:12] VITALS: O2SAT 96
[2016-10-18] MEDS ORDERED: BUDESONIDE 3 MG PO SCH (09:00)
--- NOTE | 2016-10-18 10:04 | Progress Note ---
<Yvette Tapia - Last Filed: 10/18/16 10:09> Subjective: Patient is seen lying in her bed this morning. She reports other than some right -sided back pain, she has no complaints. She would like to drink some water. She has been NPO since midnight due to her scheduled gallbladder sonogram later today. She has no complaints of weakness or numbness. No nausea or vomiting. The pain that she is describing in her back is the same pain she presented with on admission. She ate supper last night with no complication. Objective Vital signs: Temperature 97.1 F 10/18/16 08:00 Pulse Rate 64 10/18/16 08:00 Respiratory Rate 16 10/18/16 08:00 Blood Pressure 128/76 10/18/16 08:00 Pulse Oximetry 96 10/18/16 08:00 Oxygen Delivery Method Room Air Height/Weight/BMI: Height 1.7 m Weight 74.1 kg Body Mass Index 25.5 - Constitutional Present: no acute distress, well nourished, well developed - Routine HEENT Exam Head: Present: normocephalic, atraumatic ENT: Present: mucous membranes moist, dentition normal - Routine Respiratory Exam Present: CTA bilaterally. Absent: wheezes - Routine Cardiovascular Exam Present: RRR, S1, S2. Absent: murmur - Routine Abdominal Exam Present: soft, normoactive bowel sounds, tenderness (right upper quadrant), non distended. Absent: organomegaly, mass - Routine Extremities Exam Present: no edema, normal capillary refill - Routine Skin Exam Present: dry, warm - Routine Neurological Exam Present: alert, oriented X3 - Routine Lymphatic Exam Lymphatic: Absent: adenopathy - Routine Psychiatric Exam Present: normal affect, normal thought process Results - Labs CBC & Chem 7: 10/18/16 03:58 10/18/16 03:58 Labs: Laboratory Tests 10/18/16 03:58 Troponin I < 0.012 C-Reactive Protein < 5.0 Assessment and Plan Assessment and Plan: Impression Epigastric/right upper quadrant/right back pain Chest pain Transient Right-sided facial numbness Transient and recurrent right sided weakness Coronary artery disease with angina Carotid atherosclerosis GERD COPD Osteoarthritis Hyperlipidemia Osteoporosis Mild Hypernatremia-on admission Mild Hypokalemia-on admission Tobacco use PLAN: Given her reported neurological symptoms and known vascular disease, MRI of the brain, echo and carotid Doppler scheduled for today She already had CT abdomen/pelvis with oral/IV contrast scheduled for her abdominal pain today through her GI specialist. Will proceed with this. Will also check gallbladder ultrasound given her persistent right upper quadrant pain radiating to the back. Sepsis Assessment - Evaluation Sepsis screening result: No Definite Risk Hospital Course Summary Disclaimer: The visit summary below is not to be considered part of the above Progress Note. Hospital Course: 10/17/16 - Hospital admission to observation Impression Epigastric/right upper quadrant/right back pain Chest pain Transient Right-sided facial numbness Transient and recurrent right sided weakness Coronary artery disease with angina Carotid atherosclerosis GERD COPD Osteoarthritis Hyperlipidemia Osteoporosis Mild Hypernatremia-on admission Mild Hypokalemia-on admission Tobacco use Plan Admit patient to hospitalist team (Dr. Aparicio attending) under observation status for further workup, monitoring vital signs/labs. Workup to include echocardiogram, carotid sonogram, CT abdomen pelvis, MRI brain. Telemetry ordered given her history of coronary artery disease/angina. Vital signs every 8 hours. Cardiac diet Half-normal saline with KCl to run at 75 mL per hour given her hyponatremia and hypokalemia SCDs for DVT prevention. Hold Lovenox until MRI brain is completed. CBC and BMP in the morning along with lipase and lipids and urinalysis for laboratory completeness. PT/OT for functional assessment. ST for swallowing assessment. RT consult for smoking cessation. Nebulizer treatments when necessary Continue Lipitor for hyperlipidemia Continue omeprazole for GERD Continue budesonide, mesalamine for Crohn's. Discussed code status. Pt requests DO NOT RESUSCITATE. Order is written. On discharge, care will be returned to PCP, Seema Pereira APRN. 10/18/16 Given her reported neurological symptoms and known vascular disease, MRI of the brain, echo and carotid Doppler scheduled for today She already had CT abdomen/pelvis with oral/IV contrast scheduled for her abdominal pain today through her GI specialist. Will proceed with this. Will also check gallbladder ultrasound given her persistent right upper quadrant pain radiating to the back. <Barron Aparicio - Last Filed: 10/18/16 17:25> Objective Vital signs: Temperature 97.9 F 10/18/16 15:38 Pulse Rate 69 10/18/16 15:38 Respiratory Rate 18 10/18/16 15:38 Blood Pressure 156/71 H 10/18/16 15:38 Pulse Oximetry 96 10/18/16 15:38 Oxygen Delivery Method Room Air Height/Weight/BMI: Height 1.7 m Weight 74.1 kg Body Mass Index 25.5 Results - Labs CBC & Chem 7: 10/18/16 03:58 10/18/16 03:58 Assessment and Plan DVT Prophylaxis: SCD's Resuscitation Status: Full Code Assessment and Plan: Impression Epigastric/right upper quadrant/right back pain Chest pain Transient Right-sided facial numbness Transient and recurrent right sided weakness Coronary artery disease with angina Carotid atherosclerosis GERD COPD Osteoarthritis Hyperlipidemia Osteoporosis Mild Hypernatremia-on admission Mild Hypokalemia-on admission Tobacco use Have independently interviewed and examined pt. Chart reviewed. Case discussed with CM and my PA. Care plan developed with my supervision; agree with above. Hungry from being NPO for all the testing. Notes some discomfort to back and abdomen. No nausea. Breathing stable. Neurological changes resolved. Lungs: decreased, no distress CV: regular AB: soft nd/nt BS present MSE: awake alert appropriate Plan: Reviewed testing results with patient. MRI of brain not showing tumor - areas of change in attenuation possible migraine vs chronic white matter changes. Doppler neck without rate limiting stenosis. GB sono negative (except for discomfort doing procedure). CT ab/pelvis without definitive pathology. Lab unimpressive. Patient feeling ready for discharge-some frustration that nothing definitively showing up. Will D/C to home. F/U with PCP in outpatient setting. - Time spent with patient discharge greater than 30 minutes Hospital Course Summary Disclaimer: The visit summary below is not to be considered part of the above Progress Note.
[2016-10-18] MEDS: MESALAMINE 800 MG TABLET PO SCH ×2 (10:09→16:57)
--- NOTE | 2016-10-18 10:24 | Magnetic Resonance Report ---
EXAM: MR head/brain wo con HISTORY: Right sided weakness, facial numbness and headache COMPARISON: Prior MRI of the brain performed 12/02/2014 Multislice/multisequence imaging of the brain was performed in the sagittal, axial and coronal planes. Imaging was performed before and following intravenous Gadolinium administration. FINDINGS: The ventricles are midline and appear normal in size and configuration. There is no evidence of mass effect or midline shift. There is no evidence of an acute ischemic event on the diffusion weighted images. Normal harry/white matter differentiation is preserved. There are a few tiny foci of nonspecific white matter demyelination in the centrum semiovale of both cerebral hemispheres, left greater than right ranging in size from 2 to 3 mm which can be seen with migraine and mild chronic small vessel ischemic change. The brain stem and posterior fossa appear intact. There is no evidence of cerebellar tonsillar ectopia. No intra-axial, extra-axial masses or fluid collections are seen. The structures of the skull base appear of normal signal intensity and contour. There is mild chronic ethmoid sinus mucosal thickening, the remaining paranasal sinuses are clear as are the mastoid air cells. The mastoid air cells appear clear. IMPRESSION: 1. No MRI evidence of acute intracranial ischemic event. 2. There are a few tiny foci of nonspecific white matter demyelination in the centrum semiovale of both cerebral hemispheres, left greater than right ranging in size from 2 to 3 mm which can be seen with migraine and mild chronic small vessel ischemic change. 3. Mild chronic ethmoid sinus mucosal thickening. .
--- NOTE | 2016-10-18 10:29 | Ultrasound Report ---
EXAM: US gall bladder HISTORY: RUQ pain COMPARISON: Prior examination dated 04/24/2015 FINDINGS: Gallstones, pericholecystic fluid, or gallbladder wall thickening is not seen. The patient did experience tenderness while scanning over the gallbladder however. The common bile duct measured 5 mm (previously measured 7 mm). The previously identified extrahepatic biliary duct dilatation has resolved in the interval. The intrahepatic biliary ductal system is not dilated. The liver and pancreas appear satisfactory. The right kidney measured 10.6 cm, demonstrating no evidence of mass effect, hydronephrosis or perinephric fluid collection. Ascites is not seen. IMPRESSION: 1. No evidence of cholelithiasis or cholecystitis. The patient did experience tenderness while scanning over the gallbladder however. If indicated further evaluation with HIDA scan may be helpful. 2. The previously identified extra hepatic biliary duct dilatation has resolved in the interval. .
--- NOTE | 2016-10-18 11:26 | Ultrasound Report ---
EXAM: US carotid doppler BI HISTORY: Right sided weakness COMPARISON: No prior studies available for comparison. TECHNIQUE: Arterial duplex Doppler interrogation of the carotid arteries were performed bilaterally. Spectral analysis was utilized. DESCRIPTION: There is moderate plaque formation seen in the right carotid artery bulb and proximal right ICA. No significant plaque formation is seen in the left carotid artery (patient is status post left and are directed medially March 2016) Velocities are as follows: RIGHT CAROTID SYSTEM: CCA: 76 cm/S Bulb: 99 cm/S Proximal ICA: 199 cm/S Mid ICA: 108 cm/S Distal ICA: 119 cm/S ECA: 89 cm/S Vertebral: Antegrade ICA/CCA Ratio: 2.6 LEFT CAROTID SYSTEM: CCA: 94 cm/S Bulb: 92 cm/S Proximal ICA: 123 cm/S Mid ICA: 173 cm/S Distal ICA: 147 cm/S ECA: 103 cm/S Vertebral: Antegrade ICA/CCA Ratio: 1.8 IMPRESSION: 1. Moderate plaque formation is seen in the right carotid artery bulb and proximal right ICA. The elevated peak systolic velocities in the proximal right ICA are in the range of 50-69% caliber narrowing. 2. No significant plaque formation seen in the left carotid artery but there is elevated peak systolic velocity in the mid and distal left ICA in the range of 50-69% caliber narrowing. 3. Vertebral artery flows antegrade bilaterally. .
[2016-10-18] MEDS ORDERED: IOHEXOL 300mg/ml 100ml INJECTION ONE (13:02)
[2016-10-18] MEDS ORDERED: SALINE FLUSH 10ml SYRINGE ONE (13:02)
[2016-10-18] MEDS ORDERED: NS 100 ML ONE (13:02)
[2016-10-18 15:39] VITALS: BP 156/71; PULSE 69; RESP 18; TEMP 97.9
--- NOTE | 2016-10-18 16:59 | CT Scan Report ---
Indication: Ab pain Crohn's PROCEDURE: CT abdomen pelvis w con: Encounter: Initial Comparison: CT angiogram of the aorta dated October 17, 2016 Technique: Axial CT images were performed through the abdomen and pelvis after the administration of intravenous contrast. Coronal and sagittal two-dimensional reformats. Automated Exposure Control and Iterative Reconstruction dose reducing techniques were utilized. Contrast: Omnipaque 300 99 mL Findings: The lung bases are clear. The liver is unremarkable. Vicarious excretion of contrast by the gallbladder. Spleen, pancreas and adrenal glands are within normal limits. Tiny bilateral low-attenuation renal foci, too small to definitively characterize. No abdominal or pelvic lymphadenopathy. Bladder is normal. No free fluid. Uterus is absent. No evidence of a bowel obstruction. No evidence of active bowel inflammation. Bone windows are within normal limits. Impression: No acute disease process seen in the abdomen or pelvis. .
--- NOTE | 2016-10-18 17:30 | Discharge Summary ---
Discharge Information Date of admission: 10/17/16 16:27 Anticipated date of discharge: 10/18/16 Attending Physician: Barron Aparicio MD Primary care physician: Seema Pereira APRN - Discharge Diagnosis Discharge Diagnosis: Epigastric/right upper quadrant/right back pain Chest pain - resolved. No evidence of AMI Transient Right-sided facial numbness Transient and recurrent right sided weakness Associated conditions and complications 5 mm noncalcified nodule in the left lower lobe that is indeterminate [place] short interval six-month CT chest follow-up Coronary artery disease with angina Carotid atherosclerosis Crohn's disease GERD COPD Osteoarthritis Hyperlipidemia Osteoporosis Mild Hypernatremia-on admission Mild Hypokalemia-on admission Tobacco use Mild chronic ethmoid sinus mucosal thickening - Laboratory Labs: Admit Lab 10/17/16 10/17/16 13:33 13:33 Sodium 145 H Potassium 3.5 L Chloride 110 H Carbon Dioxide 24 Anion Gap 11 BUN 16.0 Creatinine 0.8 GFR Calculation 73 BUN/Creatinine Ratio 20 Glucose 94 Calcium 9.2 Total Bilirubin 0.50 AST 30 ALT 41 Alkaline Phosphatase 90 Troponin I < 0.012 Lipase 98 Laboratory Tests 10/18/16 03:58 C-Reactive Protein < 5.0 10/18/16 03:58 10/18/16 03:58 Pending Lab 10/18/16 03:58 Triglycerides Pending Cholesterol Pending LDL Cholesterol, Calc Pending VLDL Cholesterol Pending HDL Cholesterol Pending Cholesterol/HDL Ratio Pending - Radiology Radiology: Date of Exam: 10/17/16 EXAM: CT angio aorta IMPRESSION: 1. No evidence of aneurysmal dilatation intimal flap or dissection of the thoracic or abdominal aorta. Mild plaque formation is seen in the thoracic and abdominal aorta and iliac arteries. 2. There is a 5 mm noncalcified nodule in the left lower lobe that is indeterminate and warrants short interval six-month CT chest follow-up. 3. Mild chronic emphysematous lung changes. 4. Diverticulosis coli without evidence of diverticulitis. 5. Gallbladder is contracted which may be due to recent meal, correlate clinically as chronic gallbladder disease can also give this appearance. 6. Constipation. 7. There are a few tiny of hypodense nodularity seen in both thyroid lobes. Sonographic assessment on a nonemergent basis may be helpful. Date of Exam: 10/17/16 PROCEDURE: CT head/brain wo con IMPRESSION: No acute intracranial abnormality or hemorrhage. Date of Exam: 10/18/16 EXAM: MR head/brain wo con IMPRESSION: 1. No MRI evidence of acute intracranial ischemic event. 2. There are a few tiny foci of nonspecific white matter demyelination in the centrum semiovale of both cerebral hemispheres, left greater than right ranging in size from 2 to 3 mm which can be seen with migraine and mild chronic small vessel ischemic change. 3. Mild chronic ethmoid sinus mucosal thickening. Date of Exam: 10/18/16 EXAM: US carotid doppler BI IMPRESSION: 1. Moderate plaque formation is seen in the right carotid artery bulb and proximal right ICA. The elevated peak systolic velocities in the proximal right ICA are in the range of 50-69% caliber narrowing. 2. No significant plaque formation seen in the left carotid artery but there is elevated peak systolic velocity in the mid and distal left ICA in the range of 50-69% caliber narrowing. 3. Vertebral artery flows antegrade bilaterally. Date of Exam: 10/18/16 EXAM: US gall bladder IMPRESSION: 1. No evidence of cholelithiasis or cholecystitis. The patient did experience tenderness while scanning over the gallbladder however. If indicated further evaluation with HIDA scan may be helpful. 2. The previously identified extra hepatic biliary duct dilatation has resolved in the interval. Date of Exam: 10/18/16 PROCEDURE: CT abdomen pelvis w con Findings: The lung bases are clear. The liver is unremarkable. Vicarious excretion of contrast by the gallbladder. Spleen, pancreas and adrenal glands are within normal limits. Tiny bilateral low-attenuation renal foci, too small to definitively characterize. No abdominal or pelvic lymphadenopathy. Bladder is normal. No free fluid. Uterus is absent. No evidence of a bowel obstruction. No evidence of active bowel inflammation. Bone windows are within normal limits. Impression: No acute disease process seen in the abdomen or pelvis. History of Present Illness HPI: Jayda is a 61-year-old female patient of Seema Pereira APRN. She presented to the emergency room today with complaints of at the gastric/right upper quadrant/ right back pain. States she's had for a week but yesterday it got worse. It is typically worse after eating or even after drinking water. She states yesterday around 10 am she had chest pain and felt that the right side of her face fell asleep. She had chills that lasted all day. She fell several times throughout the day yesterday. She's had a "killer headache" since yesterday. It is better now since she had the Dilaudid in the ER. She states at 11 AM she took her baby aspirin and nitroglycerin 2. The chest pain eased with this. Following the nitroglycerin, she had double vision and states her vision would "blackout." She states at 12:30 she took some ibuprofen for the headache. At 1:00 she was trying to get out of her chair to go to the bathroom and she fell to the ground. Says her right arm and leg "wouldn't work." Her helped her to the bathroom and she was able to walk after using the bathroom, but she states her right leg was "dragging." She was started on budesonide (Uceris) on 10/14/[address] Arthur for her abdominal pain. He wanted her to try this to see if that would help with her pain, with the idea that if her pain improved, it would confirm her symptoms are from her Crohn's. She had recently seen her PCP who has her scheduled for a CT scan of her abdomen and pelvis and labs including CBC, CMP and lipase to rule out gallbladder disease. Patient reports she had a HIDA scan in March 2015. It was negative other than it showed a dilated common bile duct. She feels strongly her pain is coming from her gallbladder. She does not eat fried or fatty foods. States the pain is typically brought on after eating or drinking. She states she has a history of several TIAs. She has had endarterectomy on the left and reports her right carotid is 50% stenosed. She sees Dr. Cheri Acevedo. States her last heart cath was March 2016. No history of stents or CABG. In August she had an episode of arm and leg numbness lasted for at least an hour. She gets these symptoms periodically and states they have just progressed in severity and length of time they last. She also notes she had her first Reclast infusion on 10/15/16. She started atorvastatin 10 mg for hyperlipidemia on 10/11/16. For complete details of the H&P refer to that document. Objective Vital signs: Temperature 97.9 F 10/18/16 15:38 Pulse Rate 69 10/18/16 15:38 Respiratory Rate 18 10/18/16 15:38 Blood Pressure 156/71 H 10/18/16 15:38 Pulse Oximetry 96 10/18/16 15:38 Oxygen Delivery Method Room Air Height/Weight/BMI: Height 1.7 m Weight 74.1 kg Body Mass Index 25.5 Hospital Course This is a general summary of the patient's hospital course. For more details refer to the complete medical record. Hospital course: 10/17/16 - Hospital admission to observation Impression Epigastric/right upper quadrant/right back pain Chest pain Transient Right-sided facial numbness Transient and recurrent right sided weakness Coronary artery disease with angina Carotid atherosclerosis GERD COPD Osteoarthritis Hyperlipidemia Osteoporosis Mild Hypernatremia-on admission Mild Hypokalemia-on admission Tobacco use Plan Admit patient to hospitalist team (Dr. Aparicio attending) under observation status for further workup, monitoring vital signs/labs. Workup to include echocardiogram, carotid sonogram, CT abdomen pelvis, MRI brain. Telemetry ordered given her history of coronary artery disease/angina. Vital signs every 8 hours. Cardiac diet Half-normal saline with KCl to run at 75 mL per hour given her hyponatremia and hypokalemia SCDs for DVT prevention. Hold Lovenox until MRI brain is completed. CBC and BMP in the morning along with lipase and lipids and urinalysis for laboratory completeness. PT/OT for functional assessment. ST for swallowing assessment. RT consult for smoking cessation. Nebulizer treatments when necessary Continue Lipitor for hyperlipidemia Continue omeprazole for GERD Continue budesonide, mesalamine for Crohn's. Discussed code status. Pt requests DO NOT RESUSCITATE. Order is written. On discharge, care will be returned to PCP, Seema Pereira APRN. 10/18/16 Given her reported neurological symptoms and known vascular disease, MRI of the brain, echo and carotid Doppler scheduled for today She already had CT abdomen/pelvis with oral/IV contrast scheduled for her abdominal pain today through her GI specialist. Will proceed with this. Will also check gallbladder ultrasound given her persistent right upper quadrant pain radiating to the back. Reviewed testing results with patient. MRI of brain not showing tumor - areas of change in attenuation possible migraine vs chronic white matter changes. Doppler neck without rate limiting stenosis. GB sono negative (except for discomfort doing procedure). CT ab/pelvis without definitive pathology. Lab unimpressive. Patient feeling ready for discharge-some frustration that nothing definitively showing up. Will D/C to home. F/U with PCP in outpatient setting. Echo and lipid profile are pending at discharge. Can be followed up with PCP at visit in 1 week. DVT Prophylaxis: SCD's GI Prophylaxis: Protonix Discharge Plan - Med Rec/Dispo Referrals/Follow Up: Seema Pereira APRN [Family Provider] - 1 Week (Hospital follow up ) Javi Arthur MD [Physician] - (GI follow up ) Melba Instructions: Weakness (GEN) Prescriptions: Continue Aspirin 81 mg PO DAILY PRN PRN Reason: Prn Orders Mesalamine 800 mg PO TID Albuterol Sulfate [Proair Hfa] 1 puff INH Q4H PRN PRN Reason: Shortness Of Air/Wheezing Benzonatate 100 mg PO Q8H PRN PRN Reason: Cough Atorvastatin [Lipitor] 10 mg PO HS Ibuprofen 200 mg PO Q4H PRN PRN Reason: Pain Nitroglycerin [Nitrostat] 0.4 mg PO Q5MIN PRN #0 PRN Reason: chest pain Budesonide [Uceris] 9 mg PO DAILY Omeprazole [Prilosec] 20 mg PO DAILY Discharge Instructions/Outpatient Orders: Final Provider Discharge Instructions Location: Determined By Patient - Disposition 01 Discharged Home, Self-Care - Attestation Attestation Narrative: 10/18/16 17:52 I have independently interviewed and examined patient prior to discharge. See progress note for details. Medically stable for discharge to home.
--- NOTE | 2016-10-22 19:31 | Echocardiogram ---
DATE OF STUDY 10/18/2016 INDICATIONS Right-sided weakness, possible stroke. TECHNICAL QUALITY Technically good 2D, M-mode, Doppler echocardiographic images were submitted for interpretation. FINDINGS 1. CARDIAC CHAMBERS: All cardiac chamber measurements are normal. Aortic root diameter is normal. RV size and contractility appear normal. Left atrium measured 3.5 cm. 2. LEFT VENTRICLE: Wall thickness of 11 mm is consistent with borderline concentric LVH. Left ventricular systolic function is normal. EF measured 72% . Diastolic function parameters are considered normal. 3. VALVES: Aortic, mitral and tricuspid valve structure and motion appear normal with normal valve excursion. 4. DOPPLER: Up to moderate mitral regurgitation. Normal flow velocities throughout were measured. Very mild tricuspid regurgitation with estimated systolic PA pressure of 32 mmHg. The mitral regurgitation appears a slightly eccentric jet directed posteriorly. There is a trivial whiff of aortic regurgitation present. 5. No evidence of pericardial effusion, intracardiac masses, thrombi, vegetations or shunts. 6. Central venous pressure is elevated based on the absence of respiratory variation of the IVC. IMPRESSION 1. Borderline LVH with normal systolic function, EF 72%, normal diastolic function parameters. 2. Elevated central venous pressure with normal systolic PA pressure. 3. No evidence of intracardiac masses, thrombi, vegetations or shunt. 4. Bubble study was not performed. 5. Transesophageal echocardiogram may be of higher accuracy if there is no explanation for patient's stroke, especially if an embolic phenomenon is suspected. 6. Patient was in sinus rhythm during the study. 7. Moderate mitral regurgitation. MTDD
== END 2016-10-18 18:43 | disposition home or self-care (01) ==
LOC: MED 13:16 → ED 13:16 → MED 17:20
PROVIDERS: ADMIT Hospitalist; ATTEND Hospitalist